=== PATIENT | female | born 1985 | race Caucasian/White ===

== ENCOUNTER 2022-05-10 08:36 | Emergency (ER) | payer OTHER ==
[2022-05-10] MEDS ORDERED: NORCO 5-325 TA1 EACH PO ×2 (10:12→10:43)
[2022-05-10] MEDS ORDERED: KEFLEX250 MG PO (10:43)
== END 2022-05-10 11:03 | disposition home or self-care (01) ==
LOC: FER 08:36
DX: S81.811A Laceration without foreign body, right lower leg, initial encounter (principal); Z23 Encounter for immunization; Z28.310 Unvaccinated for COVID-19; W20.8XXA Other cause of strike by thrown, projected or falling object, initial encounter; Y92.89 Other specified places as the place of occurrence of the external cause; Y99.0 Civilian activity done for income or pay
CPT/HCPCS: 73610; 90471; 90715

== ENCOUNTER 2022-05-24 15:08 | Emergency (ER) | payer OTHER ==
[~2022-05-24 15:08] MED LIST: KEFLEX250 MG PO; NORCO 5-325 TA1 EACH PO
== END 2022-05-24 16:16 | disposition home or self-care (01) ==
LOC: FER 15:08
DX: S81.811D Laceration without foreign body, right lower leg, subsequent encounter (principal); Z28.310 Unvaccinated for COVID-19; X58.XXXD Exposure to other specified factors, subsequent encounter
CPT/HCPCS: 99281